=== PATIENT | male | born 1990 | race Caucasian/White ===

== ENCOUNTER 2023-11-29 20:03 | Emergency (ER) | payer BC, SELFPAY ==
[2023-11-29 20:06] VITALS: BP 144/90
[2023-11-29 22:39] VITALS: BP 137/83
--- NOTE | 2023-11-29 23:03 | ED.SKININJ ---
HPI-Injury
General
Chief Complaint: Skin Surface Trauma
Source: patient
Exam Limitations: none
Time Seen by Provider: 11/29/23 20:30
Nursing documentation reviewed up to this point in time: agreed with
Travel History
Have you had any contact with someone who has COVID-19?: No
Do you have any symptoms of coronavirus? Fever > 100 degrees, chills, cough, shortness of breath, sore throat, loss of taste or smell, muscle aches, or headache?: No
History of Present Illness-Injury
Is this injury a work related problem?: No
Is pt an associate of [facility]?: No
Initial Injury comments:
Cut self on broken glass cake lid. Sustained lac to left palmar thumb. Injury occurred just [employer]
Past History
Past History
ED Past Medical History: None
Review of Systems
Review of Systems
Allergies reviewed?: Yes
All Other Systems: ROS reviewed and negative except as documented in HPI and ROS
Constitutional: Reports no symptoms
Musculoskeletal: Reports no symptoms
Skin: Reports other (laceration to left palmar thumb)
Neurological: Reports no symptoms
Psychiatric: Reports no symptoms
Skin Exam
Laceration
Left Palmar Thumb:
Orientation: stellate
Type of Laceration: simple
Any active bleeding?: low grade venous oozing
Distal skin color and temperature: normal-warm & good color
Normal distal neurovascular exam: Yes
Range of motion: full
Phy Exam
General Physical Exam
General Presentation: well appearing and no apparent distress
General age: appears stated age
General Skin: warm and dry
General Habitus: normal
General Mental: alert
General Hydration: appears well hydrated
Musculoskeletal Exam
Musculoskeletal Exam: full ROM and neuro vasc intact
Skin Exam
Skin Exam: normal color, warm/dry, no rash and other (Stellate laceration to left palmar thumb. FUll ROM to thumb. Neurovascularly intact. No evidence of FB)
Psychiatric Exam
Psychiatric Exam: normal mood/affect
Course
Orders/Labs/Results
Orders:
Orders
11/29/23 20:24
Thumb/Finger(s) 2 View Lt [CR Finger(s)/thumb Min 2 Vw Lt] Urgent
Comment:
Reason For Exam: possible foreign body
Vital Signs
Initial and Last Documented VS:
Initial Vital Signs
Temp Pulse Resp BP Pulse Ox
98.9 F 74 18 144/90 98
11/29/23 20:06 11/29/23 20:06 11/29/23 20:06 11/29/23 20:06 11/29/23 20:06
Last Documented Vital Signs
Temp Pulse Resp BP Pulse Ox
98.9 F 77 18 137/83 98
11/29/23 20:06 11/29/23 22:39 11/29/23 20:06 11/29/23 22:39 11/29/23 22:39
Procedures
Laceration Closure
Left Palmar Thumb:
Status of Wound: clean
Size of Wound in cm: 2.5
Description of Wound Edges: ragged
Preparation: cleaned with saline
Anesthesia: 1% Lidocaine
Revision/Debridement: routine- no revision
Wound exploration: explored to base- no FB
Type of Closure: single layer closure
Skin Closure Material: 5-0 prolene
*Radiology
Radiology exam reviewed: preliminary read by ED provider (no FB)
*Pulse Oximetry
Patient hypoxic: no
*Critical Care Note
Total Time (30-74mins, 75-104mins- exclusive of procedures): Not Applicable
ED Attending Note
-
Portions of this chart may have been created with voice recognition software.� Occasional wrong word or��sound alike� substitutions may have occurred due to the inherent limitations of voice recognition software.
Discharge Plan
Departure
Patient Disposition: Home (Routine Discharge)
Date of Disposition: 11/29/23
Time of Disposition: 22:25
Patient with high blood pressure during this ER visit?: No
Condition: Good
Covid-19: Not Applicable
Discharge Problem:
Laceration of thumb
Instructions: Laceration Repair With Stitches (DC)
Prescriptions:
No Action
cephalexin 500 MG capsule
500 mg PO QID Qty: 40 0RF
Referrals:
NONE,* [Family Provider] -
Activity Restrictions/Additional Instructions:
Sutures can be removed in 7-10 days by your family doctor.
Interventions
Interventions:
*Risk Screen - Suicide Last Done: 11/29/23 20:06
*General Assessment Last Done: 11/29/23 22:39
*Neglect/Abuse Screening Last Done: 11/29/23 20:06
ED- Fall Risk Assessment Last Done: 11/29/23 22:39
*ED COVID-19 Vaccine History Last Done: 11/29/23 22:39
*Nursing Disposition Last Done: 11/29/23 22:39
ED-Skin Assessment Last Done: 11/29/23 21:35
Discharge Date and Time
Discharge Date/Time: 11/29/23 22:40
== END 2023-11-29 22:40 | disposition home or self-care (01) ==
LOC: EMR 20:03
PROVIDERS: EMERGENCY PHYSICIAN Emergency Medicine
DX: S61.012A Laceration without foreign body of left thumb without damage to nail, initial encounter (principal); W25.XXXA Contact with sharp glass, initial encounter
CPT/HCPCS: 99283; 12001; 73140

== ENCOUNTER → 2024-01-12 09:57 | Outpatient (REF) | payer BC, SELFPAY | LOC: RCS 09:57 | PROVIDERS: ATTENDING PHYSICIAN Internal Medicine Cardiovascular Disease; FAMILY PHYSICIAN Nurse Practitioner Family | DX: R00.2 Palpitations (principal); Z82.49 Family history of ischemic heart disease and other diseases of the circulatory system | CPT/HCPCS: 93017 ==